=== PATIENT | female | born 1990 | race Caucasian/White ===

== ENCOUNTER 2018-02-22 18:45 | Emergency (ER) | payer OTHER ==
[~2018-02-22] VITALS: Ht 165.1 cm; Wt 87.1 kg
[~2018-02-22 18:45] MED LIST: AMOXICILLIN500 MG PO
[2018-02-22] MEDS ORDERED: SYNTHROID50 MCG (19:25)
== END 2018-02-22 22:01 | disposition home or self-care (01) ==
LOC: ER 18:45
DX: N30.80 Other cystitis without hematuria (principal)

== ENCOUNTER 2018-11-30 13:30 | Emergency (ER) | payer OTHER ==
[~2018-11-30] VITALS: Ht 165.1 cm; Wt 87.5 kg
[~2018-11-30 13:30] MED LIST changes: +SYNTHROID50 MCG
[2018-11-30] MEDS ORDERED: PRENATAL TABLE1 EACH (13:47)
== END 2018-11-30 17:36 | disposition home or self-care (01) ==
LOC: ER 13:30
DX: R10.11 Right upper quadrant pain (principal); R07.89 Other chest pain

== ENCOUNTER → 2019-03-07 | Outpatient (CLI) | payer OTHER ==
[~2019-03-07] MED LIST changes: +PRENATAL TABLE1 EACH
== END | disposition home or self-care (01) ==
LOC: PRENATAL 12:44
DX: O99.212 Obesity complicating pregnancy, second trimester (principal); O99.89 Other specified diseases and conditions complicating pregnancy, childbirth and the puerperium; O35.3XX1 Maternal care for (suspected) damage to fetus from viral disease in mother, fetus 1; Z3A.22 22 weeks gestation of pregnancy

== ENCOUNTER 2019-06-18 05:01 | Inpatient (IN) | payer OTHER ==
[~2019-06-18] VITALS: Ht 165.1 cm; Wt 95.3 kg
== END 2019-06-20 16:11 | disposition home or self-care (01) | DRG 806 ==
LOC: LDR 05:01 → OB/GYN 17:42
PROVIDERS: ADMIT Obstetrics & Gynecology
PROC: 10E0XZZ Delivery of Products of Conception, External Approach (ICD-10-PCS; principal; 2019-06-18)
PROC: 4A1HXFZ Monitoring of Products of Conception, Cardiac Rhythm, External Approach (ICD-10-PCS; 2019-06-18)
PROC: 3E033VJ Introduction of Other Hormone into Peripheral Vein, Percutaneous Approach (ICD-10-PCS; 2019-06-18)
DX: O42.913 Preterm premature rupture of membranes, unspecified as to length of time between rupture and onset of labor, third trimester (principal); O98.32 Other infections with a predominantly sexual mode of transmission complicating childbirth; Z37.0 Single live birth; Z3A.36 36 weeks gestation of pregnancy; A60.09 Herpesviral infection of other urogenital tract; O99.284 Endocrine, nutritional and metabolic diseases complicating childbirth

== ENCOUNTER 2019-10-26 08:36 | Emergency (ER) | payer OTHER ==
[~2019-10-26] VITALS: Ht 165.1 cm; Wt 89.4 kg
== END 2019-10-26 12:07 | disposition home or self-care (01) ==
LOC: ER 08:36
DX: N61.0 Mastitis without abscess (principal)

== ENCOUNTER 2021-10-11 09:20 | Outpatient (CLI) | payer OTHER | END 2021-10-11 09:25 | disposition home or self-care (01) | LOC: RAD 09:20 | PROVIDERS: ATTEND Obstetrics & Gynecology | DX: J06.9 Acute upper respiratory infection, unspecified (principal) ==

== ENCOUNTER 2021-10-20 06:05 | Day surgery (SDC) | payer OTHER ==
[~2021-10-20 06:05] MED LIST changes: +SYNTHROID75 MCG PO
== END 2021-10-20 17:25 | disposition home or self-care (01) ==
LOC: CIR.AMB 06:05
PROVIDERS: ATTEND Obstetrics & Gynecology
DX: Z64.1 Problems related to multiparity (principal); Z20.822 Contact with and (suspected) exposure to COVID-19; Z86.16 Personal history of COVID-19; G43.909 Migraine, unspecified, not intractable, without status migrainosus; E03.9 Hypothyroidism, unspecified